=== PATIENT | male | born 1935 | race Caucasian/White ===

== ENCOUNTER → 2017-06-21 | Outpatient (CLI) | payer OTHER | END | disposition home or self-care (01) | LOC: CVU 13:12 | PROVIDERS: ATTEND Internal Medicine Cardiovascular Disease | DX: I25.5 Ischemic cardiomyopathy (principal); I73.9 Peripheral vascular disease, unspecified; I25.10 Atherosclerotic heart disease of native coronary artery without angina pectoris; I10 Essential (primary) hypertension; E78.5 Hyperlipidemia, unspecified; I35.1 Nonrheumatic aortic (valve) insufficiency; Z95.1 Presence of aortocoronary bypass graft | CPT/HCPCS: 93306; 93922; 93925 ==

== ENCOUNTER → 2018-04-18 | Outpatient (CLI) | payer OTHER | END | disposition home or self-care (01) | LOC: CFH 15:29 | PROVIDERS: ATTEND Internal Medicine Cardiovascular Disease | DX: R60.0 Localized edema (principal); I77.89 Other specified disorders of arteries and arterioles | CPT/HCPCS: 93970 ==